=== PATIENT | female | born 1980 | race Caucasian/White ===

== ENCOUNTER 2018-07-21 11:45 | Emergency (ER) | payer MEDICAID ==
[~2018-07-21] VITALS: Ht 170.2 cm; Wt 76.4 kg
[2018-07-21 11:48] VITALS: Ht 170.2 cm; Wt 76.4 kg
[2018-07-21] MEDS ORDERED: KETOROLAC 30 MG INJ IV STA (13:03)
[2018-07-21] MEDS ORDERED: SOD CHLORIDE 0.9% 1,000 ML IV STA ×2 (13:03→14:00)
[2018-07-21] MEDS ORDERED: ONDANSETRON 4 MG INJ IV STA (13:03)
[2018-07-21] MEDS ORDERED: SOD CHLORIDE 0.9% 500 ML IV STA (14:49)
[2018-07-21] MEDS ORDERED: CEFTRIAXONE 1 GM/50 ML (PMX) 50 ML IVPB ONE (15:00)
[2018-07-21] MEDS ORDERED: CEPH-443 PO (15:36)
[2018-07-21] MEDS ORDERED: IBUP800T48 PO (15:36)
[2018-07-21] MEDS ORDERED: ACET500C5 PO (15:36)
[2018-07-21] MEDS ORDERED: OSEL75CA23 PO (15:37)
[2018-07-21] MEDS ORDERED: ONDA4TAB14 PO (15:37)
--- NOTE | 2018-07-21 15:53 | ERD ---
ER Documentation Chief Complaint Chief Complaint body aches with fever & chills x 4 days HPI 37-year-old female presenting with body aches with fever and chills times 4 days. Patient had a few episodes of vomiting and describes pain to the left flank. Patient last took Tylenol 6 hours prior to evaluation. Patient feels diffusely weak and dizzy. Denies medical problems. Allergic to morphine. Surgical history . Social history denies ROS All systems reviewed and are negative except as per history of present illness. Medications Home Meds Active Scripts Ondansetron (Ondansetron Odt) 4 Mg Tab.rapdis, 4 MG PO Q6H PRN for NAUSEA AND/OR VOMITING, #10 TAB Prov:JENSEN ROSE PA-C 07/21/18 Oseltamivir Phosphate* (Tamiflu*) 75 Mg Capsule, 75 MG PO BID for 5 Days, CAP Prov:JENSEN ROSE PA-C 07/21/18 Acetaminophen* (Tylophen*) 500 Mg Capsule, 2 CAP PO Q8H PRN for PAIN AND OR ELEVATED TEMP, #20 CAP Prov:JENSEN ROSE PA-C 07/21/18 Ibuprofen* (Motrin*) 800 Mg Tab, 800 MG PO Q6, #30 TAB Prov:JENSEN ROSE PA-C 07/21/18 Cephalexin* (Keflex*) 500 Mg Capsule, 500 MG PO QID for 7 Days, CAP Prov:JENSEN ROSE PA-C 07/21/18 Allergies Allergies: Coded Allergies: morphine (Verified Allergy, Unknown, 07/21/18) PMhx/Soc Hx Alcohol Use: No Hx Substance Use: No Hx Tobacco Use: No Smoking Status: Never smoker FmHx Family History: No diabetes, No coronary disease, No other Physical Exam Vitals Vital Signs Date Temp Pulse Resp B/P (MAP) Pulse Ox O2 O2 Flow FiO2 Time Delivery Rate 07/21/18 102.4 107 24 135/79 99 11:48 (97) Physical Exam GENERAL: The patient is well-appearing, well-nourished, in no acute distress HEENT: Atraumatic. Conjunctivae are pink. Pupils equal, round, and reactive to light. There is no scleral icterus. Tympanic membranes clear bilaterally. Oropharynx clear. No nystagmus or photophobia. CHEST: Clear to auscultation bilaterally. There are no rales, wheezes or rhonchi. HEART: Regular rate and rhythm. No murmurs, clicks, rubs or gallops. No S3 or S4. ABDOMEN: Normal active bowel sounds. Mild tenderness palpation of the left flank with no rebound tenderness. No distention. No organomegaly. BACK: No midline or flank tenderness. Result Diagram: 07/21/18 1315 07/21/18 1315 Results 24 hrs Laboratory Tests Test 07/21/18 13:10 07/21/18 13:15 07/21/18 13:18 Urine Color YELLOW Urine Clarity CLEAR Urine pH 9.0 Urine Specific [place] 1.013 Urine Ketones TRACE mg/dL Urine Nitrite NEGATIVE mg/dL Urine Bilirubin NEGATIVE mg/dL Urine Urobilinogen 2+ mg/dL Urine Leukocyte Esterase TRACE Kristyn/ul Urine Microscopic RBC 3 /HPF Urine Microscopic WBC 5 /HPF Urine Squamous Epithelial Cells FEW /HPF Urine Bacteria FEW /HPF Urine Hemoglobin NEGATIVE mg/dL Urine Glucose NEGATIVE mg/dL Urine Total Protein 1+ mg/dl White Blood Count 17.4 10^3/ul Red Blood Count 4.80 10^6/ul Hemoglobin 14.0 g/dl Hematocrit 40.1 % Mean Corpuscular Volume 83.5 fl Mean Corpuscular Hemoglobin 29.2 pg Mean Corpuscular 34.9 g/dl Hemoglobin Concent Red Cell Distribution Width 12.5 % Platelet Count 278 10^3/UL Mean Platelet Volume 11.9 fl Immature Granulocytes % 0.500 % Neutrophils % 82.6 % Lymphocytes % 7.8 % Monocytes % 8.7 % Eosinophils % 0.1 % Basophils % 0.3 % Nucleated Red Blood Cells % 0.0 /100WBC Immature Granulocytes # 0.090 10^3/ul Neutrophils # 14.4 10^3/ul Lymphocytes # 1.4 10^3/ul Monocytes # 1.5 10^3/ul Eosinophils # 0.0 10^3/ul Basophils # 0.1 10^3/ul Nucleated Red Blood Cells # 0.0 10^3/ul Sodium Level 138 mmol/L Potassium Level 4.1 mmol/L Chloride Level 103 mmol/L Carbon Dioxide Level 24 mmol/L Anion Gap 11 Blood Urea Nitrogen 12 mg/dl Creatinine 0.89 mg/dl Est Glomerular Filtrat > 60 mL/min Rate mL/min Glucose Level 106 mg/dl Lactic Acid Level 2.6 mmol/L Calcium Level 9.7 mg/dl Total Bilirubin 0.4 mg/dl Direct Bilirubin 0.00 mg/dl Indirect Bilirubin 0.4 mg/dl Aspartate Amino Transf (AST/SGOT) 48 IU/L Alanine 59 IU/L Aminotransferase (ALT/SGPT) Alkaline Phosphatase 113 IU/L Total Protein 8.5 g/dl Albumin 4.5 g/dl Globulin 4.00 g/dl Albumin/Globulin Ratio 1.12 Lipase 72 U/L POC Beta HCG, Qualitative NEGATIVE Current Medications Medications Dose Sig/Brett Start Time Status Last (Trade) Ordered Route PRN Stop Time Admin Dose Reason Admin Sodium 1,000 ml @ Q1H STAT 07/21/18 DC 07/21/18 Chloride 1,000 mls/hr IV 13:03 07/21/18 13:23 14:02 Ondansetron 4 mg ONCE STAT 07/21/18 DC 07/21/18 HCl (Zofran IV 13:03 07/21/18 13:24 Inj) 13:05 Ketorolac 30 mg ONCE STAT 07/21/18 DC 07/21/18 Tromethamine IV 13:03 07/21/18 13:24 (Toradol) 13:05 Sodium 1,000 ml @ Q1H STAT 07/21/18 DC 07/21/18 Chloride 1,000 mls/hr IV 14:00 07/21/18 14:30 14:59 Ceftriaxone 50 ml @ ONCE ONCE 07/21/18 DC 07/21/18 Sodium 100 mls/hr IVPB 15:00 07/21/18 14:47 15:29 Sodium 500 ml @ Q1H STAT 07/21/18 07/21/18 Chloride 500 mls/hr IV 14:49 07/21/18 15:07 15:48 Procedures/MDM ER course: Elevated lactic acid of 2.6 resulted. Urine culture, blood culture sent. Rocephin given in ED. Fluids of 30 mg per kg administered patient. Repeat lactic acid drawn. Patient is feeling much better. Influenza negative. Toradol given. Zofran given. DIAGNOSTIC IMAGING REPORT Patient: EPI LABOY : 1980 Age: 37 Sex: F MR #: [id number] DOS: 07/21/18 1448 Ordering MD: JAISON ROSE PA-C Location: [facility] Room/Bed: PROCEDURE: XR Chest AP portable CLINICAL INDICATION: Fever TECHNIQUE: An AP portable radiograph of the chest was submitted. COMPARISON: None. FINDINGS: Support Hardware: None Cardiovascular: The cardiovascular silhouette appears unremarkable. Lung Gilbert: The lung gilbert appear clear with no nodule, alveolar infiltrate, or interstitial prominence evident. Pleural Spaces: No pneumothorax or pleural effusion is identified. Osseous Structures: The osseous structures appear intact. Soft Tissues: The soft tissues appear unremarkable. IMPRESSION: Unremarkable portable chest. DIAGNOSTIC IMAGING REPORT Patient: EPI LABOY : 1980 Age: 37 Sex: F [id number] DOS: 07/21/18 1303 Ordering MD: JAISON ROSE PA-C Location: [facility] Room/Bed: PROCEDURE: CT Abdomen and Pelvis without intravenous contrast. CLINICAL INDICATION: Abdominal pain. TECHNIQUE: CT scan of the abdomen and pelvis without contrast was performed on a multi-detector high-resolution CT scanner. The patient was scanned without IV contrast. Coronal and sagittal reformatted images were obtained from the axial source images. DICOM images are available. Total DLP = 848.3 mGy-cm. CTDIvol = 14.4 mGy. One or more of the following dose reduction techniques were used: Automated exposure control. Adjustment of the mA and/or kV according to patient size. Use of iterative reconstruction technique. COMPARISON: None. FINDINGS: Lower thorax: Normal. Liver: Normal. No focal mass. Biliary: Normal gallbladder. No biliary dilatation. Pancreas: Normal. Spleen: Normal. Adrenal Glands: Normal. Genitourinary: There are small bilateral nonobstructing renal calculi measuring up to 2 mm. There is mild atrophy and cortical scarring of the left kidney. There is no evidence of obstructive uropathy. Gastrointestinal: Normal. Lymph nodes: Normal. Vascular: Normal. Peritoneum/mesentery: Normal. No free fluid or free air. Reproductive organs: Normal. Musculoskeletal: There is a small fat-containing umbilical hernia. Lack of IV contrast limits sensitivity of exam. IMPRESSION: 1. Small bilateral nonobstructing renal calculi. Mild atrophy and cortical scarring of the left kidney. No evidence of obstructive uropathy. 2. Otherwise unremarkable noncontrast CT abdomen and pelvis without acute pathology identified. MDM: 37-year-old female presenting with symptoms and elevated lactic acid. I have low suspicion for sepsis as patient's lactic corrected while in the ER with no obvious findings of infection. This case was discussed with Dr. Amaral throughout the ER visit. He was in support of discharge plan and the ER visit. I have low suspicion for acute abdominal emergency. I have considered abdominal infection occluding but not limited to appendicitis, septic stone, pyelonephritis, pelvic emergency. I have low suspicion for bacterial HEENT infection. I have low suspicion for pneumonia. Patient is discharged stricter precautions and told to follow-up with primary care. Patient is told symptoms change or worsen to immediately return to the ER. All questions answered at discharge Departure Diagnosis: Primary Impression: Fever Condition: Stable Patient Instructions: Fever Control (Adult) Referrals: [facility] YOU HAVE RECEIVED A MEDICAL SCREENING EXAM AND THE RESULTS INDICATE THAT YOU DO NOT HAVE A CONDITION THAT REQUIRES URGENT TREATMENT IN THE EMERGENCY DEPARTMENT. FURTHER EVALUATION AND TREATMENT OF YOUR CONDITION CAN WAIT UNTIL YOU ARE SEEN IN YOUR DOCTORS OFFICE WITHIN THE NEXT 1-2 DAYS. IT IS YOUR RESPONSIBILITY TO MAKE AN APPOINTMENT FOR FOLOW-UP CARE. IF YOU HAVE A PRIMARY DOCTOR --you should call your primary doctor and schedule an appointment IF YOU DO NOT HAVE A PRIMARY DOCTOR YOU CAN CALL OUR PHYSICIAN REFERRAL HOTLINE AT IF YOU CAN NOT AFFORD TO SEE A PHYSICIAN YOU CAN CHOSE FROM THE FOLLOWING [facility] [address] [facility] [facility] [address] [facility] [facility] [address] [facility] [facility] [address] [facility]. [facility] [address] [facility]. [facility]. [address] Additional Instructions: FOLLOW UP WITH YOUR PRIMARY CARE PHYSICIAN TOMORROW.Return to this facility if you are not improving as expected. JENSEN ROSE PA-C Jul 21, 2018 15:53
[2018-07-21 16:36] VITALS: BP 102/54; PULSE 84; RESP 20
== END 2018-07-21 16:42 | disposition home or self-care (01) ==
LOC: FTE 11:45
DX: R50.9 Fever, unspecified (principal)
CPT/HCPCS: 36415; 71045; 74176; 80053; 81001; 81025; 83605; 83690; 85025; 87040; 87086; 87400; 96361; 96365; 96366; 96375; J0696; J1885; J2405; J7030; J7040; Z7502